=== PATIENT | female | born 1985 | race Caucasian/White ===

== ENCOUNTER → 2016-12-30 | Outpatient (CLI) | payer OTHER ==
[~2016-12-30] MED LIST: ALBUTEROL SULFAT3 M3 IH; JOLESSA 30 MCG-1 TAB PO; KLONOPIN 0.5MG0.5 MG PO; LEVBID0.375 MG; NEXIUM24HROTC PO; TYLENOL 325MG325 MG PO; VERAMYST27.5 MCG/A NS; ZYRTEC 10MG10 MG PO
== END ==
LOC: COL.PUL 13:00
DX: R06.02 Shortness of breath (principal)
CPT/HCPCS: J7674

== ENCOUNTER 2017-02-07 16:29 | Emergency (ER) | payer OTHER ==
[~2017-02-07] VITALS: Ht 162.6 cm; Wt 79.5 kg
[2017-02-07 16:30] VITALS: BP 154/89; TEMP 98.3
[2017-02-07 18:03] VITALS: PULSE 90
== END 2017-02-07 18:04 | disposition home or self-care (01) ==
LOC: COL.ER 16:29
DX: R53.81 Other malaise (principal); R42 Dizziness and giddiness; R07.89 Other chest pain; R06.02 Shortness of breath; J45.909 Unspecified asthma, uncomplicated; F41.9 Anxiety disorder, unspecified